=== PATIENT | female | born 1995 | race Caucasian/White ===

== ENCOUNTER 2023-02-21 02:35 | Emergency (ER) | payer SELFPAY ==
[2023-02-21] MEDS ORDERED: fentaNYL 50 mcg/mL 1 mL Vial ONE (02:53)
[2023-02-21] MEDS ORDERED: Lorazepam 1 MG TAB ONE (02:53)
[2023-02-21] MEDS ORDERED: Ketorolac Tromethamine 30 MG/ML VIAL ONE (02:54)
[2023-02-21] MEDS ORDERED: LORazepam 2 MG/ML SYR.(CARPUJECT) ONE (02:55)
== END 2023-02-21 05:14 | disposition home or self-care (01) ==
LOC: ERS 02:35
DX: H66.92 Otitis media, unspecified, left ear (principal); J32.4 Chronic pansinusitis
CPT/HCPCS: 70450; 96372; J1885; J2060; J3010